=== PATIENT | male | born 1975 | race Caucasian/White ===

== ENCOUNTER 2019-06-21 05:59 | Emergency (ER) | payer OTHER ==
[~2019-06-21] VITALS: Ht 182.9 cm; Wt 113.4 kg
== END 2019-06-21 06:54 | disposition home or self-care (01) ==
LOC: ER 05:59
DX: F41.9 Anxiety disorder, unspecified (principal); F32.9 Major depressive disorder, single episode, unspecified; I10 Essential (primary) hypertension
CPT/HCPCS: 99283

== ENCOUNTER 2019-07-14 06:54 | Observation (INO) | payer OTHER ==
[~2019-07-14] VITALS: Ht 182.9 cm; Wt 106.6 kg
[2019-07-14 07:44] LABS: BASOPHILS ABSOLUTE AUTO 0.09 K/mm3 (0.00-0.23); BASOPHILS PERCENT AUTO 1 % (0-2); EOSINOPHILS ABSOLUTE AUTO 0.36 K/mm3 (0.00-0.68); EOSINOPHILS PERCENT AUTO 3 % (0-6); Hemoglobin 14.9 g/dL (13.5-17.5); IMMATURE GRAN ABSOLUTE AUTO 0.04 K/mm3 (0.00-0.10); IMMATURE GRAN PERCENT AUTO 0 % (0-1); LYMPHOCYTES ABSOLUTE AUTO 1.82 K/mm3 (0.84-5.20); LYMPHOCYTES PERCENT AUTO 15 % (21-46); MONOCYTES ABSOLUTE AUTO 1.34 K/mm3 (0.16-1.47); MONOCYTES PERCENT AUTO 11 % (4-13); Mean Corpuscular HGB 29.3 pg (26.0-34.0); Mean Corpuscular HGB Conc 33.9 g/dL (31.5-36.5); Mean Corpuscular Volume 86 fL (80-100); Mean Platelet Volume 12.1 fL (9.1-12.4); NEUTROPHILS ABSOLUTE AUTO 8.41 K/mm3 (1.96-9.15); NEUTROPHILS PERCENT AUTO 70 % (41-73); Platelet Count 184 K/mm3 (150-400); RDW Coefficient Variation 13.5 % (11.7-14.2); RDW Standard Deviation 42.7 fL (35.1-46.3); Red Blood Cell Count 5.09 M/mm3 (4.30-5.90); White Blood Cell Count 12.06 K/mm3 (4.00-11.30)
[2019-07-14] MEDS ORDERED: ATOR10 PO (07:52)
[2019-07-14] MEDS ORDERED: Buspirone HCl15 MG PO (07:52)
[2019-07-14] MEDS ORDERED: Vitamin D2000 UNIT PO (07:52)
[2019-07-14] MEDS ORDERED: AMLO5 PO (07:52)
[2019-07-14] MEDS ORDERED: TRAZ100 PO (07:53)
[2019-07-14] MEDS ORDERED: LATUDA60 MG PO (07:53)
[2019-07-14] MEDS ORDERED: FAMO20 PO (07:53)
[2019-07-14] MEDS ORDERED: Sulindac200 MG PO (07:53)
[2019-07-14] MEDS ORDERED: LITH300C PO (07:53)
[2019-07-14 07:57] LABS: Acetaminophen, Random 6.4 ug/mL (10.0-30.0); Alanine Aminotransfer (ALT/SGP 34 U/L (12-78); Albumin/Globulin Ratio 1.1 (0.8-1.8); Alk Phos 67 U/L (50-136); Anion Gap 14 mmol/L (6-16); Aspartate Aminotrans (AST/SGOT 32 U/L (12-37); Bilirubin, Total 0.3 mg/dL (0.1-1.0); Blood Urea Nitrogen 7 mg/dL (8-24); Bun/Creatinine Ratio 8.2 (12.0-20.0); CO2, Blood 20 mmol/L (21-32); Calcium, Blood 8.5 mg/dL (8.5-10.1); Chloride, Blood 103 mmol/L (98-108); Creatinine, Blood 0.86 mg/dL (0.60-1.20); Ethanol (Alcohol), Blood, Med 118 mg/dL; Globulin, Blood 3.5 g/dL (2.2-4.0); Glomerular Filtration Rate >60 (60-); Glucose, Blood 113 mg/dL (70-99); Potassium, Blood 3.5 mmol/L (3.5-5.5); Salicylate <1.7 mg/dL (2.8-20.0); Sodium, Blood 137 mmol/L (136-145); Total Protein, Blood 7.5 g/dL (6.4-8.2)
[2019-07-14 08:13] LABS: Source, Urine Voided
[2019-07-14 08:21] LABS: Bilirubin, Urine Neg (Neg); Blood, Urine Neg (Neg); Glucose Qualitative, Urine Neg (Neg); Ketones, Urine Neg (Neg); Leukocyte Esterase, Urine Neg (Neg); Nitrite, Urine Neg (Neg); Protein, Urine Neg (Neg); Urobilinogen, Urine NORM (Normal)
[2019-07-14 08:39] LABS: U Amphetamine Screen Not Detected; U Barbituate Screen Not Detected; U Benzodiazapine Screen Not Detected; U Buprenorphine Screen Not Detected; U Cannabinoids Screen DETECTED; U Cocaine Screen Not Detected; U Methadone Screen Not Detected; U Methamphetamine Screen Not Detected; U Opiates Screen Not Detected; U Oxycodone Screen Not Detected; U Phencyclidine Screen Not Detected; U Propoxyphene Screen Not Detected
[2019-07-14 08:40] LABS: Appearance, Urine Clear (Clear); Color, Urine Pale Yellow (P-Yellow)
[2019-07-14 10:24] LABS: Lithium 0.91 mmol/L (0.60-1.20)
[2019-07-14] MEDS ORDERED: ACET500 PO (13:02)
[2019-07-14] MEDS ORDERED: ALBU90OI INH (13:02)
[2019-07-14] MEDS ORDERED: DICLOFENAC SOD100 G1 TOP (13:05)
[2019-07-14] MEDS ORDERED: LIDO700A20 TOP (13:05)
[2019-07-14] MEDS ORDERED: LIDO5TO TOP (13:07)
[2019-07-14] MEDS ORDERED: ARTIFICIAL TEA1 EACH BOTHEYES (13:08)
== END 2019-07-14 16:45 | disposition home or self-care (01) ==
LOC: ER 06:54 → EOR 06:55
PROVIDERS: ADMIT Emergency Medicine
DX: T56.892A Toxic effect of other metals, intentional self-harm, initial encounter (principal); T43.592A Poisoning by other antipsychotics and neuroleptics, intentional self-harm, initial encounter; T42.6X2A Poisoning by other antiepileptic and sedative-hypnotic drugs, intentional self-harm, initial encounter; F41.9 Anxiety disorder, unspecified; F32.9 Major depressive disorder, single episode, unspecified; I10 Essential (primary) hypertension; F10.129 Alcohol abuse with intoxication, unspecified; Z79.899 Other long term (current) drug therapy
CPT/HCPCS: 80053; 80178; 81003; 85025; 93005; 93010; 94640; 99285-25; G0378; G0480

== ENCOUNTER 2024-07-19 20:25 | Emergency (ER) | payer OTHER ==
[~2024-07-19] VITALS: Ht 182.9 cm; Wt 122.5 kg
[~2024-07-19 20:25] MED LIST: ACET500 PO; ALBU90OI INH; AMLO5 PO; ARTIFICIAL TEA1 EACH BOTHEYES; ATOR10 PO; Buspirone HCl15 MG PO; DICLOFENAC SOD100 G1 TOP; FAMO20 PO; LATUDA60 MG PO; LIDO5TO TOP; LIDO700A20 TOP; LITH300C PO; Sulindac200 MG PO; TRAZ100 PO; Vitamin D2000 UNIT PO
[2024-07-19 20:47] VITALS: BP 178/100
[2024-07-19 20:57] LABS: BASOPHILS ABSOLUTE AUTO 0.08 K/mm3 (0.00-0.23); BASOPHILS PERCENT AUTO 1 % (0-2); EOSINOPHILS ABSOLUTE AUTO 0.76 K/mm3 (0.00-0.68); EOSINOPHILS PERCENT AUTO 7 % (0-6); Hematocrit 45.1 % (37.0-53.0); Hemoglobin 15.3 g/dL (13.5-17.5); IMMATURE GRAN ABSOLUTE AUTO 0.04 K/mm3 (0.00-0.10); IMMATURE GRAN PERCENT AUTO 0 % (0-1); LYMPHOCYTES ABSOLUTE AUTO 1.87 K/mm3 (0.84-5.20); LYMPHOCYTES PERCENT AUTO 16 % (21-46); MONOCYTES ABSOLUTE AUTO 1.12 K/mm3 (0.16-1.47); MONOCYTES PERCENT AUTO 10 % (4-13); Mean Corpuscular HGB 29.2 pg (26.0-34.0); Mean Corpuscular HGB Conc 33.9 g/dL (31.5-36.5); Mean Corpuscular Volume 86 fL (80-100); Mean Platelet Volume 11.8 fL (9.1-12.4); NEUTROPHILS PERCENT AUTO 67 % (41-73); Platelet Count 223 K/mm3 (150-400); RDW Coefficient Variation 14.5 % (11.7-14.2); RDW Standard Deviation 45.3 fL (35.1-46.3); Red Blood Cell Count 5.24 M/mm3 (4.30-5.90); White Blood Cell Count 11.77 K/mm3 (4.00-11.30)
[2024-07-19 21:13] LABS: Albumin, Blood 4.2 g/dL (3.4-5.0); Albumin/Globulin Ratio 1.4 (0.8-1.8); Bilirubin, Total 0.4 mg/dL (0.1-1.0); Bun/Creatinine Ratio 9.4 (12.0-20.0); Calcium, Blood 8.9 mg/dL (8.5-10.1); Creatinine, Blood 0.86 mg/dL (0.60-1.20); Globulin, Blood 3.1 g/dL (2.2-4.0); Potassium, Blood 4.2 mmol/L (3.5-5.5); Total Protein, Blood 7.3 g/dL (6.4-8.2)
[2024-07-19] MEDS ORDERED: Ketorolac Tromethamine 30mg Vial IM ONE (21:50)
[2024-07-19] MEDS ORDERED: Ketorolac Tromethamine 30mg Vial IV ONE (22:05)
== END 2024-07-19 22:36 | disposition home or self-care (01) ==
LOC: ER 20:25
PROVIDERS: Student in an Organized Health Care Education/Training Program
DX: R07.82 Intercostal pain (principal); I10 Essential (primary) hypertension; Z79.899 Other long term (current) drug therapy
CPT/HCPCS: 71045; 80053; 84484; 85025; 93005; 93010; 96374; 99285-25; J1885